=== PATIENT | male | born 1990 | race Two or more races ===

== ENCOUNTER 2022-04-01 16:12 | Emergency (ER) | payer OTHER ==
[2022-04-01 18:30] VITALS: BP 118/75; PULSE 85; RESP 16; TEMP 98.2
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
== END 2022-04-01 21:40 | disposition home or self-care (01) ==
LOC: EC 16:12
DX: S29.012A Strain of muscle and tendon of back wall of thorax, initial encounter (principal); S20.219A Contusion of unspecified front wall of thorax, initial encounter; V89.2XXA Person injured in unspecified motor-vehicle accident, traffic, initial encounter; Y92.410 Unspecified street and highway as the place of occurrence of the external cause
CPT/HCPCS: 71046; 72050; 76705; 99284